=== PATIENT | male | born 1990 | race Caucasian/White ===

== ENCOUNTER 2017-02-23 09:56 | Emergency (ER) | payer OTHER, BC ==
[2017-02-23] MEDS ORDERED: Lidocaine 1% 30 ML SDV INJECT ONE (10:00)
[2017-02-23] MEDS ORDERED: Bacitracin Oint 1 GM U/D Packet TOP ONE (10:00)
--- NOTE | 2017-02-23 10:06 | EDM.PDOC ---
ED HPI GENERAL MEDICAL PROBLEM - General Chief Complaint: Laceration Stated Complaint: [id number] CUT HAND WC 02/23/17 Time Seen by Provider: 02/23/17 10:00 Source of Information: Reports: Patient, RN, RN Notes Reviewed History Limitations: Reports: No Limitations - History of Present Illness INITIAL COMMENTS - FREE TEXT/NARRATIVE: Cut left index finger on a piece of clean new sheet metal at work just prior to arrival. Denies any other injury. Last tetanus vaccine 2 yrs ago. Onset: Today Onset Date: 02/23/17 (Just SHRINKER) Location: Reports: Upper Extremity, Left Quality: Reports: Ache Severity: Mild Improves with: Reports: None Worsens with: Reports: None Associated Symptoms: Reports: No Other Symptoms - Related Data Allergies Allergy/AdvReac Type Severity Reaction Status Date / Time cat pelt standardized Allergy Itching Verified 02/23/17 10:06 allergenic ex [cat pelt standardized extract] grass pollen-perennial rye, Allergy Hives Verified 02/23/17 10:06 standar [grass poll-perennial rye,std] Home Meds: Home Meds . [No Known Home Meds] 12/06/14 [History] Past Medical History Neurological History: Reports: Concussion Other Dermatologic History: 2nd degree moody from sunburn - Infectious Disease History Infectious Disease History: Reports: Chicken Pox - Past Surgical History Other HEENT Surgeries/Procedures: collapsed septum Other Neurological Surgeries/Procedures: brain injury Other Musculoskeletal Surgeries/Procedures:: multiple fracture; procedure to wrist and elbow Social & Family History - Family History Family Medical History: Noncontributory - Tobacco Use Smoking Status *Q: Never Smoker Years of Tobacco use: 10 Used Tobacco, but Quit: No Second Hand Smoke Exposure: Yes - Caffeine Use Caffeine Use: Reports: Coffee, Energy Drinks, Soda - Alcohol Use Days Per Week of Alcohol Use: 0 - Recreational Drug Use Recreational Drug Use: Yes Drug Use in Last 12 Months: Yes Recreational Drug Type: Reports: Marijuana/Hashish, Other (see below) Recreational Drug Use Frequency: Not Used In Over 6 Months - Living Situation & Occupation Occupation: Employed Review of Systems - Review of Systems Review Of Systems: ROS reveals no pertinent complaints other than HPI. ED EXAM, GENERAL - Physical Exam Exam: See Below Exam Limited By: No Limitations General Appearance: Alert, WD/WN, No Apparent Distress Respiratory/Chest: No Respiratory Distress Cardiovascular: Normal Peripheral Pulses Extremities: Normal Range of Motion, Normal Capillary Refill, Other (3cm linear laceration to left lateral index finger to depth of subcut. tissue, no active bleeding, no FB). No: Joint Swelling Neurological: Alert, Oriented, No Motor/Sensory Deficits Skin Exam: Warm, Dry, Normal Color ED TRAUMA EXTREMITY PROCEDURES - Laceration/Wound Repair Left Lateral Proximal Finger Lac/Wound Length In cm: 3 (left index finger) Appearance: Subcutaneous, Linear, Clean Distal NVT: Neuro & Vascular Intact, No Tendon Injury Anesthetic Type: Local Local Anesthesia - Lidocaine (Xylocaine): 1% Plain Local Anesthetic Volume: 5cc Skin Prep: Chlorhexidine (Hibiciens), Saline Saline Irrigation (cc's): 500 Exploration/Debridement/Repair: Wound Explored, in a Bloodless Field, Explored to Base, Minimal Debridement, Minimally Undermined Closed With: Sutures Suture Size: 4-0 # of Sutures: 6 Suture Type: Nylon, Running Drain Placement: No Sterile Dressing Applied: Nurse Tetanus Status Addressed: Yes Complications: No Course - Orders/Labs/Meds Orders: Active Orders 24 hr Category Date Time Status Bacitracin [Bacitracin Oint 1 GM] Med 02/23/17 10:00 Once 1 dose TOP ONETIME ONE Lidocaine 1% [Xylocaine-MPF 1%] Med 02/23/17 10:00 Once 30 ml INJECT ONETIME ONE Departure - Departure Time of Disposition: 10:20 Disposition: Home, Self-Care 01 Condition: Good Clinical Impression: Work related injury Laceration of left index finger Qualifiers: Encounter type: initial encounter Damage to nail status: without damage Foreign body presence: without foreign body Qualified Code(s): S61.211A - Laceration without foreign body of left index finger without damage to nail, initial encounter - Discharge Information Instructions: Laceration Care, Adult, [facility] Forms: ED Department Discharge Additional Instructions: Keep sutures clean and dry. Use splint to prevent finger from bending and disrupting the sutures. Follow up in clinic in 7 to 10 days for suture removal. - My Orders Last 24 Hours: My Active Orders 02/23/17 10:00 Bacitracin [Bacitracin Oint 1 GM] 1 dose TOP ONETIME ONE Lidocaine 1% [Xylocaine-MPF 1%] 30 ml INJECT ONETIME ONE - Assessment/Plan Last 24 Hours: My Active Orders 02/23/17 10:00 Bacitracin [Bacitracin Oint 1 GM] 1 dose TOP ONETIME ONE Lidocaine 1% [Xylocaine-MPF 1%] 30 ml INJECT ONETIME ONE
[2017-02-23 10:09] VITALS: BP 143/70
== END 2017-02-23 10:45 | disposition home or self-care (01) ==
LOC: DL.ED 09:56
DX: S61.211A Laceration without foreign body of left index finger without damage to nail, initial encounter (principal); Z87.820 Personal history of traumatic brain injury; Z98.890 Other specified postprocedural states; Z91.09 Other allergy status, other than to drugs and biological substances; W45.8XXA Other foreign body or object entering through skin, initial encounter; Y93.89 Activity, other specified; Y92.69 Other specified industrial and construction area as the place of occurrence of the external cause; Y99.0 Civilian activity done for income or pay
CPT/HCPCS: 12002; 99283